=== PATIENT | male | born 1970 | race African-American/Black ===

== ENCOUNTER 2017-08-31 17:24 | Inpatient (IN) | payer OTHER ==
[~2017-08-31] VITALS: Ht 190.5 cm; Wt 130.2 kg
--- NOTE | ~2017-08-31 | D ---
[facility] [place] [address] DISCHARGE SUMMARY Name: MARYANA DASILVA Room #: 433-I [facility] IN .R.#: [id number] Admission: 08/31/17 Attend Phys: Day Calzada MD Discharge: 09/02/17 Date of : 66 Report #: [id number] THIS REPORT FOR: //name// CC: FAM unknown Day Calzada DATE OF SERVICE: 09/02/2017 HISTORY OF PRESENT ILLNESS: The patient is a 47-year-old man with no major health problems, who came to the hospital with urinary frequency, polydipsia, as well as dizziness for 1 week. His blood sugar was found to be greater than 400 on admission, and he was not in DKA. Please refer to admission H and P for details. HOSPITALIZATION COURSE: The patient was hospitalized. He was diagnosed with diabetes mellitus type 2. He was treated with IV fluids for severe hyperglycemia and dehydration, as well as he was started on subcutaneous insulin. On IV fluids, his symptoms have completely resolved. Currently, he is doing much better. The patient was also noted to have elevated liver function tests. Right upper quadrant ultrasound is consistent with fatty liver. The patient was started on metformin and Amaryl. Currently, his blood sugars are in 200s. He feels well, and he is asymptomatic. The patient received dietary education during the hospital stay. The patient will be discharged home today with close outpatient followup. DISCHARGE DIAGNOSES: 1. New onset diabetes mellitus type 2, current hemoglobin A1c 10%. 2. Severe hyperglycemia on presentation, with related symptoms, including dizziness, polydipsia and polyuria, resolved. 3. Obesity. 4. Fatty liver. 5. Hypertension. The patient is started on lisinopril. DISCHARGE MEDICATIONS: The patient is started on lisinopril, Amaryl and metformin. Side effects and proper use were explained to the patient. DISPOSITION: The patient is discharged home. [facility] [address] [place] [address] DISCHARGE SUMMARY Name: MARYANA DASILVA Room #: 433-I [facility]#: [id number] Admission: 08/31/17 Attend Phys: Day Calzada MD Discharge: 09/02/17 Date of : 66 Report #: [id number] FOLLOWUP PLAN: Follow up with the primary care physician in 1 week. <ELECTRONICALLY SIGNED> By: Day Calzada MD 09/03/17 1646 [id number] [id number] Day Calzada MD /nt
--- NOTE | ~2017-08-31 | EKG ---
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: Debbi WATKINS : 1970 Requested By: Felecia Larios Order Number: [id number] MD: Miguel Delaney Measurements Intervals [place] Rate: 92 P: 40 MT: 140 QRS: 10 QRSD: 92 T: QT: 371 QTc: 459 Interpretive Statements Sinus rhythm Nonspecific T abnormalities, lateral leads Compared to ECG 03/06/2016 01:12:27 T-wave abnormality now present Sinus tachycardia no longer present Electronically Signed On 09-01-2017 8:08:56 [employer] WORK[employer] by Miguel Delaney [email or web address] <ELECTRONICALLY SIGNED> By: Miguel Delaney MD 09/01/17 [phone] Miguel Delaney MD /EPI
[~2017-08-31 17:24] MED LIST: NAPROSYN500 MG PO; NORCO 5-325 TA1 EACH PO; ZOFRAN4 MG PO
[2017-08-31 17:26] VITALS: BP 145/101
[2017-08-31 18:03] LABS: BE(vivo) -4.9 mmol/L (-2 to +3); HCO3 18.9 mmol/L (22.0-26.0); PCO2 VENOUS 33.2 mmHg (41.0-51.0); PO2 VENOUS 71.6 mmHg (35.0-45.0)
[2017-08-31 18:08] LABS: ABSOLUTE NEUTROPHILS 5.2 thou/uL (1.4-8.2); BASOPHILS 0.4 % (0.0-2.0); EOSINOPHILS 0.9 % (0.0-3.0); HEMATOCRIT 56.1 % (42.0-52.0); HEMOGLOBIN 18.9 gm/dL (14.0-18.0); MCH 32.8 pg (26.0-34.0); MCHC 33.7 g/dL (28.0-37.0); MCV 97.2 fL (80.0-100.0); MONOCYTES 5.8 % (1.0-8.0); PLATELET COUNT 219 thou/uL (150-400); POLYS 68.9 % (36.0-66.0); RBC 5.77 mil/uL (4.50-6.00); RDW 13.8 % (10.5-14.5); WBC 7.6 thou/uL (4.0-11.0)
[2017-08-31 18:11] LABS: URINE BILIRUBIN NEGATIVE (Negative); URINE BLOOD TRACE (Negative); URINE CLARITY CLEAR; URINE COLOR YELLOW; URINE GLUCOSE-RANDOM* 3+ (Negative); URINE KETONES 2+ (Negative); URINE LEUKOCYTES NEGATIVE (Negative); URINE NITRITE NEGATIVE (Negative); URINE PROTEIN (DIPSTICK) TRACE (Negative); URINE UROBILINOGEN 0.2 E.U./dl (0.2-1.0)
[2017-08-31 18:13] LABS: CALCIUM 10.2 mg/dL (8.5-10.1); CREATININE 1.2 mg/dL (0.7-1.3); POTASSIUM 4.5 mmol/L (3.5-5.1)
[2017-08-31 18:18] LABS: ALBUMIN 4.2 g/dL (3.4-5.0); TOTAL BILIRUBIN 0.6 mg/dL (<0.1-1.0); TOTAL PROTEIN 8.9 g/dL (6.4-8.2)
[2017-08-31 19:52] VITALS: BP 157/103
[2017-08-31 20:03] VITALS: BP 124/97
[2017-08-31 20:46] VITALS: BP 145/87
[2017-08-31 23:54] VITALS: BP 158/96
[2017-09-01 03:30] VITALS: BP 141/93
[2017-09-01 05:57] VITALS: BP 143/72
[2017-09-01 10:21] LABS: CHOLESTEROL 157 mg/dL (<200); HDL CHOLESTEROL 38 mg/dL (>40); LDL CHOLESTEROL 96 mg/dL (<100); TC:HDL 4.1 Ratio (Not establshd); TRIGLYCERIDE 119 mg/dL (<150); VLDL 24 mg/dL (<40)
[2017-09-01 16:10] VITALS: BP 134/74
[2017-09-01 19:21] VITALS: BP 129/75
[2017-09-02 03:30] VITALS: BP 105/65
[2017-09-02 05:40] LABS: ABSOLUTE NEUTROPHILS 3.2 thou/uL (1.4-8.2); BASOPHILS 0.3 % (0.0-2.0); EOSINOPHILS 1.9 % (0.0-3.0); HEMATOCRIT 47.2 % (42.0-52.0); LYMPHOCYTES 36.1 % (24.0-44.0); MCH 32.6 pg (26.0-34.0); MCHC 33.3 g/dL (28.0-37.0); MCV 97.9 fL (80.0-100.0); PLATELET COUNT 180 thou/uL (150-400); POLYS 55.7 % (36.0-66.0); RBC 4.82 mil/uL (4.50-6.00); RDW 13.7 % (10.5-14.5); WBC 5.8 thou/uL (4.0-11.0)
[2017-09-02 05:43] LABS: HEMOGLOBIN 15.7 gm/dL (14.0-18.0)
[2017-09-02 05:53] LABS: POTASSIUM 3.5 mmol/L (3.5-5.1)
[2017-09-02 05:59] LABS: CALCIUM 8.1 mg/dL (8.5-10.1)
[2017-09-02 07:57] LABS: LARGE PLATELETS OCCASIONAL
[2017-09-02 08:38] VITALS: BP 130/75
[2017-09-02] MEDS ORDERED: GLUCOPHAGE500 MG PO (09:47)
[2017-09-02] MEDS ORDERED: GLIMEPIRIDE1 MG PO (09:47)
[2017-09-02] MEDS ORDERED: LISINOPRIL10 MG PO (09:47)
[2017-09-02 12:44] VITALS: BP 130/75
[2017-09-02 17:14] VITALS: BP 129/71
== END 2017-09-02 20:00 | disposition home or self-care (01) | DRG 638 ==
LOC: ER 17:24 → 4S 18:44 → EROBS 18:44 → 4S 20:27
PROVIDERS: Internal Medicine Endocrinology, Diabetes & Metabolism; Nurse Practitioner Acute Care; Physician Assistant
DX: E11.65 Type 2 diabetes mellitus with hyperglycemia (principal); B37.0 Candidal stomatitis; E86.0 Dehydration; E66.9 Obesity, unspecified; K76.0 Fatty (change of) liver, not elsewhere classified; I10 Essential (primary) hypertension; R63.1 Polydipsia; F17.210 Nicotine dependence, cigarettes, uncomplicated; R74.0 Nonspecific elevation of levels of transaminase and lactic acid dehydrogenase [LDH]; Z68.35 Body mass index [BMI] 35.0-35.9, adult; Z83.3 Family history of diabetes mellitus; Z84.89 Family history of other specified conditions
CPT/HCPCS: 10195

== ENCOUNTER 2018-11-07 19:09 | Emergency (ER) | payer OTHER ==
[~2018-11-07] VITALS: Ht 190.5 cm; Wt 137.9 kg
[~2018-11-07 19:09] MED LIST changes: +GLIMEPIRIDE1 MG PO; +GLUCOPHAGE500 MG PO; +LISINOPRIL10 MG PO
[2018-11-07] MEDS ORDERED: ULTRAM 50MG TAB50 MG PO (20:02)
[2018-11-07 20:23] VITALS: BP 161/106
== END 2018-11-07 20:24 | disposition home or self-care (01) ==
LOC: ER 19:09
DX: S81.811A Laceration without foreign body, right lower leg, initial encounter (principal); F17.210 Nicotine dependence, cigarettes, uncomplicated; X58.XXXA Exposure to other specified factors, initial encounter; Y93.89 Activity, other specified; Y92.89 Other specified places as the place of occurrence of the external cause; Y99.8 Other external cause status

== ENCOUNTER 2018-11-13 05:29 | Emergency (ER) | payer OTHER ==
[~2018-11-13] VITALS: Ht 190.5 cm; Wt 137.9 kg
[~2018-11-13 05:29] MED LIST changes: +ULTRAM 50MG TAB50 MG PO
[2018-11-13 05:44] LABS: ABSOLUTE NEUTROPHILS 2.4 thou/uL (1.4-8.2); BASOPHILS 0.6 % (0.0-2.0); EOSINOPHILS 2.6 % (0.0-3.0); HEMATOCRIT 43.1 % (42.0-52.0); HEMOGLOBIN 14.4 gm/dL (14.0-18.0); LYMPHOCYTES 47.4 % (24.0-44.0); MCH 34.2 pg (26.0-34.0); MCHC 33.4 g/dL (28.0-37.0); MCV 102.3 fL (80.0-100.0); PLATELET COUNT 208 thou/uL (150-400); POLYS 41.4 % (36.0-66.0); RBC 4.21 mil/uL (4.50-6.00); RDW 13.6 % (10.5-14.5); WBC 5.9 thou/uL (4.0-11.0)
[2018-11-13 05:56] LABS: ANION GAP 16 mmol/L (7-16); BUN 14 mg/dL (7-18); CALCIUM 8.4 mg/dL (8.5-10.1); CHLORIDE 104 mmol/L (98-107); CO2 21 mmol/L (21-32); CREATININE 1.3 mg/dL (0.7-1.3); GLUCOSE 171 mg/dL (74-106); SODIUM 141 mmol/L (136-145)
[2018-11-13 05:58] LABS: APTT 22.4 Seconds (24.5-32.8); INR 1.1; PROTIME 11.3 Seconds (9.3-11.4)
[2018-11-13 06:05] LABS: TROPONIN-I <0.06 ng/mL (<0.06)
--- NOTE | 2018-11-13 08:35 | EKG ---
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 : 1970 Requested By: Bobby Gomez Order Number: [id number] MD: Paul Briggs Measurements Intervals [place] Rate: 105 P: 41 [place]: 140 QRS: 18 QRSD: 90 T: 72 QT: 361 QTc: 478 Interpretive Statements Sinus tachycardia Borderline prolonged QT interval Compared to ECG 08/31/2017 18:41:21 T-wave abnormality no longer present Electronically Signed On 11-13-2018 8:35:02 CDT by Paul Briggs [email or web address] ��������������������������������������������� <ELECTRONICALLY SIGNED> ���������������������������������������� By: Paul Briggs MD, [facility] ��������������������������������������������� 11/13/18 0835 [id number] Paul Briggs MD, FACC /EPI
--- NOTE | 2018-11-13 08:44 | EKG ---
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 ��������������������������������������������� 11/13/18 0843 8 Paul Briggs MD, FACC /EPI
[2018-11-13 08:56] VITALS: BP 130/88
== END 2018-11-13 08:57 | disposition home or self-care (01) ==
LOC: ER 05:29
PROVIDERS: Emergency Medicine
DX: T81.19XA Other postprocedural shock, initial encounter (principal); F17.210 Nicotine dependence, cigarettes, uncomplicated

== ENCOUNTER 2020-06-10 14:54 | Emergency (ER) | payer OTHER ==
[~2020-06-10] VITALS: Ht 190.5 cm; Wt 139.3 kg
[2020-06-10 15:48] LABS: ABSOLUTE NEUTROPHILS 2.7 thou/uL (1.4-8.2); BASOPHILS 0.8 % (0.0-2.0); EOSINOPHILS 1.5 % (0.0-3.0); HEMATOCRIT 51.2 % (42.0-52.0); HEMOGLOBIN 17.1 gm/dL (14.0-18.0); LYMPHOCYTES 25.2 % (24.0-44.0); MCH 33.1 pg (26.0-34.0); MCHC 33.5 g/dL (28.0-37.0); MCV 98.8 fL (80.0-100.0); MONOCYTES 10.2 % (1.0-8.0); PLATELET COUNT 172 thou/uL (150-400); POLYS 62.3 % (36.0-66.0); RBC 5.19 mil/uL (4.50-6.00); RDW 13.7 % (10.5-14.5); WBC 4.3 thou/uL (4.0-11.0)
[2020-06-10 15:53] LABS: CALCIUM 8.6 mg/dL (8.5-10.1); CREATININE 1.1 mg/dL (0.7-1.3)
[2020-06-10 15:59] LABS: ALBUMIN 4.1 g/dL (3.4-5.0); TOTAL BILIRUBIN 0.7 mg/dL (0.2-1.0); TOTAL PROTEIN 8.4 g/dL (6.4-8.2)
[2020-06-10 16:48] LABS: URINE BILIRUBIN NEGATIVE (Negative); URINE BLOOD NEGATIVE (Negative); URINE CLARITY CLEAR; URINE COLOR YELLOW; URINE GLUCOSE-RANDOM* 3+ (Negative); URINE KETONES TRACE (Negative); URINE LEUKOCYTES-REFLEX NEGATIVE (Negative); URINE NITRITE-REFLEX NEGATIVE (Negative); URINE PROTEIN (DIPSTICK) NEGATIVE (Negative); URINE SPECIFIC GRAVITY 1.025 (1.005-1.035)
[2020-06-10 17:53] VITALS: BP 121/68
== END 2020-06-10 17:54 | disposition home or self-care (01) ==
LOC: ER 14:54
PROVIDERS: Physician Assistant
DX: E11.65 Type 2 diabetes mellitus with hyperglycemia (principal); R35.0 Frequency of micturition; F17.210 Nicotine dependence, cigarettes, uncomplicated; Z98.890 Other specified postprocedural states; Z79.899 Other long term (current) drug therapy